=== PATIENT | female | born 1980 | race Caucasian/White ===

== ENCOUNTER 2016-08-10 08:54 | Emergency (ER) | payer OTHER ==
--- NOTE | 2016-08-10 09:07 | UCPHY ---
H & P Patient Type: Established HPI/ROS: HPI CHIEF COMPLAINT: Cough, sinus congestion, ear pain, sore throat, wheezing with exertion, bronchitic cough HISTORY OF PRESENT ILLNESS: This patient very pleasant 35-year-old female, denies having any significant medical history or surgical history she presents to the urgent care with 2-4 weeks of sore throat, ear pain, nasal congestion, sinus pain, cough that is nonproductive, she states earlier in the month she was sick with a flu-like illness it somewhat resolved however she has had a persistent nagging cough. She denies hemoptysis, denies chest pain, denies pleuritic pain, denies history of cardiac disease or PE or DVT. Main complaint is a bronchitic sounding cough, sore throat and ear pain and nasal congestion. Denies recent fever, nausea, vomiting, diarrhea. Past Medical History: Denies significant medical history Past Surgical History: Social History: denies daily use drugs alcohol tobacco products Family History: noncontributory ROS REVIEW OF SYSTEMS: A comprehensive 10 point review of systems is otherwise negative aside from elements mentioned in the history of present illness. Exam Constitutional triage nursing summary reviewed, vital signs reviewed, awake/ alert. Eyes normal conjunctivae and sclera, EOMI, PERRLA. HENT nasal turbinates are inflamed, bilateral TMs are mildly erythematous with fluid behind both of them, posterior pharynx mildly erythematous without exudate or significant swelling, uvula midline, normal inspection, atraumatic, moist mucus membranes, no epistaxis, neck supple/ no meningismus, no raccoon eyes. Respiratory bronchitic sounding cough, otherwise clear, clear to auscultation bilaterally, normal breath sounds, no respiratory distress, no wheezing. Cardiovascular rate normal, regular rhythm, no murmur, no edema, distal pulses normal. Gastrointestinal soft, non-tender, no rebound, no guarding, normal bowel sounds, no distension, no pulsatile mass. Genitourinary no CVA tenderness. Musculoskeletal no midline vertebral tenderness, full range of motion, no calf swelling, no tenderness of extremities, no meningismus, good pulses, neurovascularly intact. Skin pink, warm, & dry, no rash, skin atraumatic. Neurologic awake, alert and oriented x 3, AAOx3, moves all 4 extremities equally, motor intact, sensory intact, CN II-XII intact, normal cerebellar, normal vision, normal speech. Psychiatric normal mood/affect. Heme/Lymph/Immune no lymphadenopathy. Differential Diagnosis: Includes but is not limited to in a particular order, viral syndrome, upper respiratory tract infection, bronchitis, otitis media, pharyngitis, viral pneumonia, doubt bacterial pneumonia Medical Decision Making: This patient appears well here nontoxic no acute distress, clear lungs on exam, no hypoxia no fever. Clinical exam is significant for upper respiratory tract infection, posterior pharynx and ears appear okay except for mild redness in the ears bilaterally, postnasal drip present, nasal congestion present, and bronchitic sounding cough. Feel this patient benefit from prednisone short course of burst, albuterol inhaler, guaifenesin for decongestion, Girdwood for severe cough and pain, ibuprofen and azithromycin. She does understand to return to the urgent care or emergency room if she develops worsening symptoms questions or concerns. Source: Patient - Medical/Surgical History Hx Asthma: No Hx Chronic Respiratory Disease: No Hx Diabetes: No Hx Cardiac Disease: No Hx Renal Disease: No Hx Cirrhosis: No Hx Alcoholism: No Hx HIV/AIDS: No Hx Splenectomy or Spleen Trauma: No Other PMH: 3 C-SEC - Family History Significant Family History: No pertinent family hx - Social History Smoking Status: Never smoked Constitutional: Initial Vital Signs Temperature (C) 36.6 C 08/10/16 09:06 Heart Rate 74 08/10/16 09:06 Respiratory Rate 18 08/10/16 09:06 Blood Pressure 145/80 H 08/10/16 09:06 O2 Sat (%) 96 08/10/16 09:06 O2 Delivery Mode Room Air Allergies/Adverse Reactions: No Known Allergies Allergy (Verified 01/10/16 18:24) Home Medications: Medication Instructions Recorded AZITHROMYCIN [Z-PACK] 250 mg PO DAILY #6 tab 08/10/16 Albuterol [Proventil Inhaler HFA 1 - 2 puffs IH Q4H #1 mdi 08/10/16 (*)] Guaifenesin [Guaifenesin ER] 600 mg PO BID #14 tab.er.12h 08/10/16 Hydrocodone/APAP 5/325 [[place]irdwood 1 - 2 tab PO Q4H PRN #10 tab 08/10/16 5/325] Ibuprofen [Motrin (*)] 800 mg PO Q6-8PRN #7 tab 08/10/16 predniSONE 60 mg PO DAILY #15 tab 08/10/16 Departure - Departure Disposition: Home, Routine, Self-Care Clinical Impression: Bronchitis URI (upper respiratory infection) Qualifiers: URI type: unspecified viral URI Qualified Code(s): J06.9 - Acute upper respiratory infection, unspecified; B97.89 - Other viral agents as the cause of diseases classified elsewhere Condition: Good Instructions: Cold Symptoms (ED), Viral Syndrome (ED), Acute Bronchitis (ED), Upper Respiratory Infection (ED) Additional Instructions: 1. Drink lots of fluids stay well-hydrated 2. return to the urgent care or emergency room if develops any worsening symptoms questions or concerns. Referrals: NONE *PRIMARY CARE P,. [Primary Care Provider] - As per Instructions Prescriptions: Albuterol [Proventil Inhaler HFA (*)] 1 - 2 puffs IH Q4H #1 mdi AZITHROMYCIN [Z-PACK] 250 mg PO DAILY #6 tab Guaifenesin [Guaifenesin ER] 600 mg PO BID #14 tab.er.12h Hydrocodone/APAP 5/325 [[place]wood 5/325] 1 - 2 tab PO Q4H PRN #10 tab PRN Reason: Pain, Moderate Ibuprofen [Motrin (*)] 800 mg PO Q6-8PRN #7 tab predniSONE 60 mg PO DAILY #15 tab - PQRS PQRS Measurement: n/a
[2016-08-10 09:08] VITALS: BP 145/80; PULSE 74; RESP 18; TEMP 98; O2SAT 96
== END 2016-08-10 09:20 | disposition home or self-care (01) ==
LOC: CED 08:54
DX: J40 Bronchitis, not specified as acute or chronic (principal); J06.9 Acute upper respiratory infection, unspecified; B97.89 Other viral agents as the cause of diseases classified elsewhere
CPT/HCPCS: 99214-PO; G0463-PO